=== PATIENT | female | born 1985 | race Caucasian/White ===

== ENCOUNTER → 2016-03-08 | Outpatient (CLI) | payer BC | END | disposition home or self-care (01) | LOC: C.PAPS 14:19 | PROVIDERS: ATTEND Obstetrics & Gynecology | DX: Z01.419 Encounter for gynecological examination (general) (routine) without abnormal findings (principal) ==

== ENCOUNTER → 2016-04-16 | Outpatient (CLI) | payer BC ==
--- NOTE | 2016-04-16 09:47 | DIAGNOSTIC IMAGING REPORT ---
LEFT PELVIS UNILATERAL HIP 1 VIEW CLINICAL HISTORY: LEFT HIP PAIN pain COMPARISON: None. DISCUSSION: The bones and joint spaces appear intact. There is no evidence of fracture, dislocation or bony disease. There is no evidence for soft tissue swelling. IMPRESSION: Negative study. Electronically signed by: Johny Sher M.D. 04/16/2016 9:46 AM Dictated Date/Time: 04/16/2016 9:46 AM
== END | disposition home or self-care (01) ==
LOC: C.RDSM 08:27
PROVIDERS: ATTEND Physical Medicine & Rehabilitation Sports Medicine
DX: M25.552 Pain in left hip (principal)

== ENCOUNTER → 2016-08-03 | Outpatient (CLI) | payer BC ==
[2016-08-05 08:47] LABS: CHLAMYDIA TRACH RNA*** NOT DETECTED (NOT DETECTED); GC (NEIS GONORRHOEAE)RNA** NOT DETECTED (NOT DETECTED)
== END | disposition home or self-care (01) ==
LOC: C.LABSPEC 11:20
PROVIDERS: ATTEND Physician Assistant
DX: N89.8 Other specified noninflammatory disorders of vagina (principal)

== ENCOUNTER → 2017-03-31 | Outpatient (CLI) | payer BC | END | disposition home or self-care (01) | LOC: C.LABSPEC 10:42 | PROVIDERS: ATTEND Physician Assistant | DX: N89.8 Other specified noninflammatory disorders of vagina (principal) ==

== ENCOUNTER → 2017-03-31 | Outpatient (CLI) | payer BC | END | disposition home or self-care (01) | LOC: C.PAPS 11:49 | PROVIDERS: ATTEND Physician Assistant | DX: Z01.419 Encounter for gynecological examination (general) (routine) without abnormal findings (principal) ==